=== PATIENT | female | born 1940 | race Caucasian/White ===

== ENCOUNTER → 2017-04-06 | Outpatient (CLI) | payer OTHER ==
[~2017-04-06] MED LIST: ATOR40TA78 PO; CALC1CAP8 PO; CHOL5000 PO; DOXA2TAB9 PO; FISH1CAP PO; GLUC-111 PO; LEVO100T5 PO; LOSA1TAB22 PO; METO25TA35 PO; MULT-516 PO; VITA1TAB19 PO
== END | disposition home or self-care (01) ==
LOC: CFH 09:16
PROVIDERS: ATTEND Radiology Radiation Oncology
DX: Z12.31 Encounter for screening mammogram for malignant neoplasm of breast (principal); Z85.3 Personal history of malignant neoplasm of breast; Z90.12 Acquired absence of left breast and nipple
CPT/HCPCS: 77063; G0202

== ENCOUNTER → 2017-04-25 | Outpatient (CLI) | payer OTHER | END | disposition home or self-care (01) | LOC: ROC 07:59 | PROVIDERS: ATTEND Radiology Radiation Oncology | DX: Z08 Encounter for follow-up examination after completed treatment for malignant neoplasm (principal); C50.212 Malignant neoplasm of upper-inner quadrant of left female breast | CPT/HCPCS: 99212; G0463 ==

== ENCOUNTER → 2017-11-07 | Outpatient (CLI) | payer OTHER | LOC: ROC 07:46 | PROVIDERS: ATTEND Radiology Radiation Oncology | DX: Z08 Encounter for follow-up examination after completed treatment for malignant neoplasm (principal); C50.512 Malignant neoplasm of lower-outer quadrant of left female breast | CPT/HCPCS: 99212; G0463 ==

== ENCOUNTER → 2018-10-30 | Outpatient (CLI) | payer MEDICARE | END | disposition home or self-care (01) | LOC: ROC 08:01 | PROVIDERS: ATTEND Radiology Radiation Oncology | DX: C50.512 Malignant neoplasm of lower-outer quadrant of left female breast (principal); Z88.2 Allergy status to sulfonamides | CPT/HCPCS: 99212; G0463 ==

== ENCOUNTER 2019-12-17 07:40 | Outpatient (CLI) | payer MEDICARE | END 2019-12-17 23:59 | disposition home or self-care (01) | LOC: ROC 07:40 | PROVIDERS: ATTEND Radiology Radiation Oncology | DX: C50.512 Malignant neoplasm of lower-outer quadrant of left female breast (principal) | CPT/HCPCS: 99212; G0463 ==